=== PATIENT | male | born 1960 | race Caucasian/White ===

== ENCOUNTER → 2018-02-27 | Outpatient (CLI) | payer OTHER ==
--- NOTE | 2018-02-27 12:47 | MR ---
EXAMINATION TYPE: MR cervical spine wo con DATE OF EXAM: 02/27/2018 COMPARISON: None HISTORY: Cervicalgia TECHNIQUE: Multiplanar, multisequence images of the cervical spine were acquired. C2-C3: Uncovertebral joint hypertrophy bilaterally. There is facet arthropathy and bilateral foramina l encroachment. Central broad-based disc bulging. No central stenosis. C3-C4: Degenerative disc disease. There is uncovertebral joint hypertrophy and facet arthropathy with mild bilateral foraminal encroachment. Broad-based central disc bulging noted. Slightly greater para centrally the left. Tiny protrusion in the differential diagnosis which abuts the anterior margin of the spinal cord. C4-C5: Severe degenerative disc disease with facet arthropathy and uncovertebral joint hypertrophy. T here is severe left-sided foraminal encroachment and mild to moderate right-sided foraminal encroachm ent. Posterior spondylosis with disc osteophyte complex results in borderline central stenosis. C5-C6: Degenerative disc disease. There is uncovertebral joint hypertrophy bilaterally greater on the left with severe left-sided foraminal encroachment. Predominantly spur extending paracentrally and l aterally to left. C6-C7: Severe degenerative disc disease. No canal stenosis or focal herniation. There is uncovertebra l joint hypertrophy bilaterally greater on the left with moderate left-sided foraminal encroachment. No Canal stenosis. C7-T1: No evidence for degenerative disc disease. No disc bulge/herniation or protrusion. No Canal stenosis. Foramina are patent bilaterally. Cervical segments are intact. There is normal alignment. Cervical spinal cord is of normal signal. Craniovertebral junction relationships are within normal limits. Just below the epiglottis to the l eft of the airway there is a area of low signal. This could represent a pharyngeal diverticulum. Othe r etiologies not excluded. Recommend CT scan of the soft tissues of the neck. IMPRESSION: 1. Multilevel severe degenerative disc disease with disc bulging and disc osteophyte complex as discu ssed above. Borderline central stenosis C4-C5. Bilateral foraminal encroachment with severe left-side d foraminal encroachment. 2. Large disc osteophyte complex which is predominately spur extending paracentrally and laterally to left C5-C6 with severe left-sided foraminal encroachment. 3. Degenerative and hypertrophic changes C6-C7 resulting in moderate left-sided foraminal encroachmen t. 4. Left paracentral disc bulge or small protrusion C3-C4 and abuts the anterior margin the spinal cor d. 5. Just below the epiglottis to the left of the airway there is a area of low signal. This could repr esent a pharyngeal diverticulum. Other etiologies not excluded. Recommend CT scan of the soft tissues of the neck.
== END | disposition home or self-care (01) ==
LOC: RADMRIMAIN 11:32
PROVIDERS: ATTEND Family Medicine
DX: M48.02 Spinal stenosis, cervical region (principal); M50.31 Other cervical disc degeneration, high cervical region; M47.812 Spondylosis without myelopathy or radiculopathy, cervical region
CPT/HCPCS: 72141

== ENCOUNTER → 2018-04-06 | Outpatient (CLI) | payer OTHER ==
--- NOTE | 2018-04-08 11:46 | CT ---
EXAMINATION TYPE: CT soft tissue neck wo con DATE OF EXAM: 04/06/2018 COMPARISON: Correlation MRI 02/27/2018 HISTORY: 57-year-old male cervical disc degeneration and abnormal MRI, low intensity area left of epi glottis. Dysphagia. TECHNIQUE: Contiguous axial scanning of the soft tissues of the neck without IV contrast. Coronal and sagittal reconstructions performed. CT DLP: 778 mGycm Automated exposure control for dose reduction was used. FINDINGS: Visualized intracranial structures, orbits and globes, paranasal sinuses, and mastoid air cells are c lear. Lack of IV contrast limits assessment of the mucosal space. Allowing for this limitation, the nasopha rynx appears clear. Small 7 mm low-density round nodule along the right vallecular space most suggest roxanna of a mucosal retention cyst, however first axial image 45. Oropharynx otherwise clear. There is posterior impression on to the right paramedian posterior pharyngeal wall secondary to bulky anterior endplate spondylosis. The epiglottis and prevertebral soft tissues are otherwise normal. The questioned round low signal abnormality along the left side of the hypopharynx corresponds to an asymmetrically distended, air-filled piriform sinus. The contralateral side is partially effaced due to the bulky anterior endplate spondylosis. The glottic and subglottic structures as well as the tracheal column are clear. The thyroid, submandibular, and parotid glands are satisfactory. Scattered nonenlarged lymph nodes in the neck. No cervical lymphadenopathy. Multilevel spondylotic change with bulky bridging anterior spondylosis from C4 through C7 levels. Ref er to MRI for further details. IMPRESSION: 1. THE MRI ABNORMALITY WITHIN THE LEFT HYPOPHARYNX CORRESPONDS TO AN ASYMMETRICALLY AIR DISTENDED PIR IFORM SINUS. THE CONTRALATERAL SIDE IS PARTIALLY EFFACED DUE TO MASS EFFECT FROM BULKY ANTERIOR ENDPL ATE SPURS. 2. INCIDENTAL TINY 7 MM LOW-DENSITY ROUNDED NODULE IN THE RIGHT VALLECULAR SPACE SUGGESTIVE OF A MUCO SARAH RETENTION CYST. THIS COULD BE CONFIRMED WITH DIRECT VISUALIZATION.
== END | disposition home or self-care (01) ==
LOC: RADCTMAIN 08:31
PROVIDERS: ATTEND Family Medicine
DX: J38.7 Other diseases of larynx (principal); R93.8 Abnormal findings on diagnostic imaging of other specified body structures
CPT/HCPCS: 70490